=== PATIENT | female | born 1965 | race Caucasian/White ===

== ENCOUNTER → 2018-09-24 | Outpatient (CLI) | payer BC ==
[~2018-09-24] MED LIST: ALBU90I INH; HYDACE5 PO; PROM25 PO
[2018-09-30 11:06] LABS: CHLAMYDIA BY NAA Negative (Negative); GONOCOCCUS BY NAA Negative (Negative); HPV 16 Negative (Negative); HPV 18 Negative (Negative); HPV OTHER HR TYPES Negative (Negative); TRICH VAG BY NAA Negative (Negative)
== END | disposition home or self-care (01) ==
LOC: LAB 12:11 → LAB SHORT 12:11
PROVIDERS: Nurse Practitioner Obstetrics & Gynecology
DX: Z01.419 Encounter for gynecological examination (general) (routine) without abnormal findings (principal); Z11.3 Encounter for screening for infections with a predominantly sexual mode of transmission
CPT/HCPCS: 87491; 87591; 87624; 87661; G0123

== ENCOUNTER 2023-05-29 12:02 | Day surgery (SDC) | payer BC ==
[~2023-05-29] VITALS: Ht 170.2 cm; Wt 121.7 kg
[2023-05-29] VITALS (14 sets, daily range): BP systolic 131–167; BP diastolic 71–94
[~2023-05-29 12:02] MED LIST changes: +ATOR10; +CLOBETASOL EMOL15 G1; +CYCL10; +IMIP10; +OZEMPIC0.25 MG/02
[2023-05-29] MEDS ORDERED: PRED5 PO (12:24)
[2023-05-29] MEDS ORDERED: Chantix1 MG PO (12:24)
[2023-05-29] MEDS ORDERED: Percocet 10-321 EACH PO (12:24)
--- NOTE | 2023-05-29 12:34 | NUR ---
PT AMBULATED TO [facility] WITH STEADY GAIT. Patient confirms NPO status and agrees with scheduled surgery. PT HAS WHEEZES BILATERAL LUNGS UPON INSPIRATION, RUBBING IN RIGHT UPPER LOBE ON EXPIRATION. WILL NOTIFY ANESTHESIA.
--- NOTE | 2023-05-29 14:19 | NUR ---
05/29/23 1419 Abbey Schneider WHEN INTERVIEWING PATIENT PRIOR TO BRINGING TO OR, NOTED SWELLING AND CIRCUMFRENTIAL BRUSING PRESENT ON LEFT LEG. , AND NOTIFIED. NO PAS PLACED ON LEFT LEG DUE TO CONDITION PRESENT.
--- NOTE | 2023-05-29 17:15 | NUR ---
Patient up to Ambulate independently. Gait steady. Discharge instructions reviewed with patient. Patient verbalizes understanding. Copy given to patient to take home. Patient States Post-Procedure ride home has been arranged. Discharged via wheelchair to private car for ride home. PT REPORTS READY TO GO HOME. PT HAS CHRONIC PAIN AND HAS PAIN MEDICATION AT HOME. ICE BAGS SENT WITH PT. PT REPORTS HAVING PILLOWS TO ELEVATE ARM WITH. CAP REFILL BRISK.WIGGLES FINGERS.
== END 2023-05-29 17:15 | disposition home or self-care (01) ==
LOC: ORSCMMR 12:02 → ORD 13:30 → ORSCMMR 13:30
PROVIDERS: Orthopaedic Surgery
PROC: 0PSH04Z Reposition Right Radius with Internal Fixation Device, Open Approach (ICD-10-PCS; principal; 2023-05-29 13:30)
DX: S52.571A Other intraarticular fracture of lower end of right radius, initial encounter for closed fracture (principal); F17.210 Nicotine dependence, cigarettes, uncomplicated; J45.909 Unspecified asthma, uncomplicated; E66.01 Morbid (severe) obesity due to excess calories; Z68.41 Body mass index [BMI] 40.0-44.9, adult; Z79.899 Other long term (current) drug therapy
CPT/HCPCS: 73110; A9270; C1713; J0690; J1885; J2250; J2270; J2405; J2704; J3010; J7120

== ENCOUNTER → 2023-11-13 | Outpatient (CLI) | payer BC ==
[~2023-11-13] MED LIST changes: +Chantix1 MG PO; +PRED5 PO; +Percocet 10-321 EACH PO
== END ==
LOC: LAB 17:08 → LAB SHORT 17:08
DX: L03.90 Cellulitis, unspecified (principal)
CPT/HCPCS: 87070; 87205

== ENCOUNTER → 2025-05-05 | Outpatient (CLI) | payer BC ==
[2025-05-05 18:58] LABS: Candida Group, PCR NOT DETECTED (NOT DETECT); Candida glabrata-krusei, PCR NOT DETECTED (NOT DETECT)
[2025-05-05 19:13] LABS: Bacterial Vaginosis PCR Positive (NEGATIVE)
== END ==
LOC: LAB 15:51 → LAB SHORT 15:51
PROVIDERS: Family Medicine
DX: Z01.419 Encounter for gynecological examination (general) (routine) without abnormal findings (principal); L29.2 Pruritus vulvae
CPT/HCPCS: 81515; 87624; G0145

== ENCOUNTER → 2025-07-07 | Outpatient (CLI) | payer BC ==
[2025-07-10 06:45] LABS: AMITRIPTYLINE, QUANT, URN <100 ng/mL; CLOMIPRAMINE QUANT, URN <200 ng/mL; DESIPRAMINE QUANT, URN <100 ng/mL; DOXEPIN QUANT, URN <100 ng/mL; IMIPRAMINE QUANT, URN <100 ng/mL; NORCLOMIPRAMINE QUANT, URN <200 ng/mL; NORDOXEPIN QUANT, URN <100 ng/mL; NORTRIPTYLINE, QUANT, URN <100 ng/mL; PROTRIPTYLINE QUANT, URN <100 ng/mL
[2025-07-10 10:19] LABS: 11-NOR-9-CARBOXY-THC,URN,QUANT >500 ng/mL
== END ==
LOC: LAB 12:40 → LAB SHORT 12:40
PROVIDERS: Family Medicine
DX: R82.5 Elevated urine levels of drugs, medicaments and biological substances (principal)
CPT/HCPCS: G0480; G0481